=== PATIENT | male | born 1995 | race American Indian/Alaskan Native ===

== ENCOUNTER 2018-03-15 18:20 | Emergency (ER) | payer OTHER ==
[~2018-03-15] VITALS: Ht 172.7 cm; Wt 68.0 kg
[~2018-03-15 18:20] MED LIST: CEPH500 PO; RXCEPH500 PO
[2018-03-15] MEDS ORDERED: IBUP800 PO (19:07)
== END 2018-03-15 19:15 | disposition home or self-care (01) ==
LOC: ER 18:20
DX: M77.11 Lateral epicondylitis, right elbow (principal)
CPT/HCPCS: 73090; 99283

== ENCOUNTER → 2020-09-12 | Outpatient (CLI) | payer SELFPAY ==
[~2020-09-12] MED LIST changes: +IBUP800 PO
== END | disposition home or self-care (01) ==
LOC: LAB 18:52 → LAB SHORT 18:52
DX: L03.039 Cellulitis of unspecified toe (principal)
CPT/HCPCS: 87070; 87075; 87205

== ENCOUNTER → 2023-03-24 | Outpatient (CLI) | payer OTHER ==
[2023-03-24 23:46] LABS: Albumin, Blood 4.2 g/dL (3.4-5.0); Albumin/Globulin Ratio 1.1 (0.8-1.8); Bilirubin, Total 0.3 mg/dL (0.1-1.0); Bun/Creatinine Ratio 24.3 (12.0-20.0); Creatinine, Blood 0.82 mg/dL (0.60-1.20); Globulin, Blood 3.7 g/dL (2.2-4.0); Potassium, Blood 3.9 mmol/L (3.5-5.5); Total Protein, Blood 7.9 g/dL (6.4-8.2)
== END | disposition home or self-care (01) ==
LOC: LAB SHORT 16:50 → LAB 16:50
PROVIDERS: Family Medicine
DX: B35.1 Tinea unguium (principal)
CPT/HCPCS: 80053